=== PATIENT | female | born 1965 | race Caucasian/White ===

== ENCOUNTER 2018-05-28 08:29 | Day surgery (SDC) | END 2018-05-28 11:38 | disposition home or self-care (01) ==

== ENCOUNTER 2018-08-04 14:58 | Emergency (ER) | END 2018-08-04 18:25 | disposition home or self-care (01) ==

== ENCOUNTER 2019-08-19 19:05 | Emergency (ER) | payer BC ==
[~2019-08-19] VITALS: Ht 152.4 cm; Wt 74.1 kg
[~2019-08-19 19:05] MED LIST: CEPH-443 PO; CYCL10TA7 PO; FAMO-96 PO; IBUP-1542 PO; LISI-525 PO; MAG355OR14 PO; METF500T24 PO
[2019-08-19 19:15] VITALS: BP 126/70; PULSE 92; RESP 20; Ht 152.4 cm; Wt 74.1 kg
[2019-08-19] MEDS ORDERED: KETOROLAC 30 MG INJ IM STA (19:22)
== END 2019-08-19 19:34 | disposition home or self-care (01) ==
LOC: FTE 19:05
DX: M25.511 Pain in right shoulder (principal); E11.9 Type 2 diabetes mellitus without complications; I10 Essential (primary) hypertension; M54.6 Pain in thoracic spine; Z79.84 Long term (current) use of oral hypoglycemic drugs
CPT/HCPCS: 96372; 99284; J1885